=== PATIENT | male | born 1970 | race Caucasian/White ===

== ENCOUNTER 2023-06-20 08:50 | Outpatient (OUT) | payer BC, SELFPAY ==
[2023-06-20 09:22] LABS: Basophils Percent Auto 0.7 % (0.2-2.0); Eosinophils Percent Auto 0.7 % (0.9-7.0); Hematocrit 47.3 % (42.0-54.0); Hemoglobin 16.2 g/dL (14.0-18.0); Immature Granulocytes Abs Auto 0.02 10^3/uL (0.00-0.03); Immature Granulocytes Pct Auto 0.5 % (0.0-0.5); Lymphocytes Absolute Auto 1.4 10^3/uL (1.2-3.8); Lymphocytes Percent Auto 32.3 % (20.5-60.0); Mean Corpuscular HGB Conc 34.2 g/dL (29.9-35.2); Mean Corpuscular Hemoglobin 31.2 pg (25.9-34.0); Monocytes Absolute Auto 0.4 10^3/uL (0.3-0.8); Monocytes Percent Auto 9.4 % (1.7-12.0); Neutrophils Absolute Auto 2.5 10^3/uL (1.4-6.5); Neutrophils Percent Auto 56.4 % (43.0-75.0); Platelet Count 194 10^3/uL (150-450); Red Cell Distribution Width 11.6 % (11.0-15.0); White Blood Count 4.4 10^3/uL (4.0-11.0)
[2023-06-20 10:02] LABS: Alanine Aminotransferase 33 U/L (16-63); Albumin Globulin Ratio 1.2; Alkaline Phosphatase 63 U/L (46-116); Anion Gap 8.2; Aspartate Amino Transferase 17 U/L (15-37); BUN Creatinine Ratio 16.3; Bilirubin Total 0.5 mg/dL (0.2-1.0); Calcium 8.8 mg/dL (8.5-10.1); Chloride 104 mmol/L (98-107); Chol HDL Ratio 3.6; Cholesterol 145 mg/dL (<=200); Estimated GFR (African America >60 (>=60); Estimated GFR (Non-African Ame >60 (>=60); Globulin 3.3 g/dL; Glucose 112 mg/dL (74-106); HDL Cholesterol 40 mg/dL (40-60); LDL Cholesterol Calculated 88.8 mg/dL; Potassium 4.2 mmol/L (3.5-5.1); Sodium 140 mmol/L (136-145); Total Protein 7.3 g/dL (6.4-8.2); Triglycerides 81 mg/dL (<=150); VLDL CHOLESTEROL 16.2 mg/dL
[2023-06-20 12:45] LABS: Estimated Average Glucose 103 mg/dL; Glycohemoglobin A1C 5.2 % (4.5-6.2)
== END 2023-06-20 08:51 | disposition home or self-care (01) ==
LOC: LAB 08:54
PROVIDERS: PCP Internal Medicine; Visit Provider Internal Medicine
DX: Z00.00 Encounter for general adult medical examination without abnormal findings (principal); Z13.1 Encounter for screening for diabetes mellitus; Z13.220 Encounter for screening for lipoid disorders
CPT/HCPCS: 36415; 80053; 80061; 83036; 85025

== ENCOUNTER 2023-12-23 14:06 | Outpatient (OUT) | payer BC, SELFPAY ==
[2023-12-23 12:08] LABS: Alanine Aminotransferase 27 U/L (16-63); Albumin Globulin Ratio 1.1; Alkaline Phosphatase 72 U/L (46-116); Anion Gap 10.6; Aspartate Amino Transferase 27 U/L (15-37); BUN Creatinine Ratio 19.5; Bilirubin Total 0.5 mg/dL (0.2-1.0); Calcium 9.5 mg/dL (8.5-10.1); Carbon Dioxide 31.8 mmol/L (21.0-32.0); Chloride 102 mmol/L (98-107); Estimated GFR (African America >60 (>=60); Estimated GFR (Non-African Ame >60 (>=60); Globulin 3.6 g/dL; Glucose 100 mg/dL (74-106); Potassium 4.4 mmol/L (3.5-5.1); Sodium 140 mmol/L (136-145); Total Protein 7.6 g/dL (6.4-8.2)
--- OUTSIDE RECORDS SUMMARY | 2023-12-26 14:19 | XMS_ITS | CCD ---
Author Organization [facility] Care Team Providers Care Caustic Liquor Maker Name Role Phone SHAIKH ATKINSON Attending Unavailable Encounters Encounter Date Encounter Type Care Provider Facility Start: 11-17-2023 End: 11-17-2023 ambulatory SHAIKH DEMETRIO Not Available Payers Date Payer Category Payer Unknown [id number] 1970 Unknown [id number] Summary Purpose Family History No Family History Records Found Advance Directives No Advanced Directives Records Found Additional Source Comments (unrecognized sect ion and content) No Status Records Found INFORMATION SOURCE (unrecogn ized section and content) DATE CREATED AUTHOR 11/20/2023 [facility] d[facility] Specialists EPIC FOR RECORDS PERTAINING TO PATIENTS WHO ARE OR HAVE BEEN ENROLLED IN A CHEMICAL DEPENDENCY/SUBSTANCEABUSE PROGRAM, SOME INFORMATION MAY BE OMITTED. This clinical summary was aggregated from multiple sources. Caution should be exercised in using it in the provision of clinical care. This summary normalizes information from multiple sources, and as a consequence, information in this document may materially change the coding, format and clinical context of patient data. In addition, data may be omitted in some cases. CLINICAL DECISIONS SHOULD BE BASED ON THE PRIMARY CLINICAL RECORDS. [employer] provides no warranty or guarantee of the accuracy or completeness of information in this document.
== END 2023-12-23 14:07 | disposition home or self-care (01) ==
LOC: LAB 12-26 14:06
PROVIDERS: PCP Internal Medicine; Visit Provider Internal Medicine
DX: K21.00 Gastro-esophageal reflux disease with esophagitis, without bleeding (principal); R10.13 Epigastric pain
CPT/HCPCS: 36415; 80053

== ENCOUNTER 2024-07-20 10:24 | Outpatient (OUT) | payer BC, SELFPAY ==
--- OUTSIDE RECORDS SUMMARY | 2024-07-18 11:29 | XMS_ITS | CCD ---
Author Organization [facility] Care Team Providers Care Energy Trader Name Role Phone Luan Huitron MD Primary Care Provider [phone] Mayela RECORDS ADMINISTRATOR, Claire Cornelius [phone] SHAIKH ATKINSON Attending Unavailable CLAIRE ZAVALA Attending Unavailabl e OTTO CASSIDY Attending Unavailable OTTO CASSIDY Referring Unavailable OTTO CASSIDY Attending Unavailable Medications Current Medications Medication Drug Class(es) Dates Sig (Normalized) Sig (Original) omeprazole 20 mg delayed release oral tablet (3 sources) Proton Pump Inhibitor take 1 tablet by mouth before mealtime omeprazole OTC (PriLOSEC OTC) 20 MG EC tablet Take 20 mg by mouth in the morning. Take before meals. Do not crush, chew, or split.. Active Problems Active Problems Problem Classification Problem Date Documented Date Episodic/Chronic Disorders usually diagnosed in infancy, childhood, or adolescence (3 sources) Attention deficit hyperactivity disorder, predominantly inattentive type; Translations: [Other specified behavioral and emotional disorders with onset usually occurring in childhood and adolescence] Onset: 11-17-2023 11-17-2023 Chronic Esophageal disorders (3 sources) Gastro-esophageal reflux disease with esophagitis; Translations: [Gastroesophageal reflux disease with esophagitis without hemorrhage] Onset: 11-17-2023 11-17-2023 Chronic Osteoarthritis (2 sources) Osteoarthritis of joint of left shoulder region; Translations: [Primary osteoarthritis, left shoulder] 06-19-2024 Chronic Other non-traumatic joint disorders (3 sources) Chronic pain of left upper limb; Translations: [Pain in left shoulder] Onset: 05-22-2024 05-22-2024 Episodic Other non-traumatic joint disorders (2 sources) Pain in left shoulder; Translations: [Pain in joint, shoulder region] 06-19-2024 Episodic Residual codes; unclassified (3 sources) Sleep apnea; Translations: [Sleep apnea, unspecified] Onset: 11-17-2023 11-17-2023 Chronic Spondylosis; intervertebral disc disorders; other back problems (3 sources) Low back pain; Translations: [Lumbar back pain] Onset: 05-22-2024 05-22-2024 Episodic Past or Other Problems Problem Classification Problem Date Documented Da te Episodic/Chronic Abdominal pain (3 sources) Epigastric pain; Translations: [Epigastric pain] Onset: 11-17-2023 11-17-2023 Episodic Encounters Encounter Date Encounter Type Care Provider Facility Start: 06-19-2024 End: 06-19-2024 [employer] Otto Cassidy NP Work Phone: [facility] Start: 06-19-2024 End: [facility] NP Work Phone: [facility] Start: 06-19-2024 End: 06-19-2024 Office outpatient visit 10 minutes Otto Cassidy NP Work Phone: [facility] Comment on above: Primary osteoarthrit is of left shoulder (Primary Dx); Left shoulder pain, unspecified chronicity Start: 06-19-2024 End: 06-19-2024 ambulatory OTTO CASSIDY Not Available Start: 05-29-2024 End: 05-29-2024 ambulatory OTTO CASSIDY Not Available Start: 05-22-2024 End: 05-22-2024 ambulatory CLAIRE ZAVALA Not Available Start: 05-22-2024 Patient encounter status Otto Cassidy NP Work Phone: [facility] Start: 11-17-2023 End: 11-17-2023 ambulatory SHAIKH DEVENDRAEARNEST Not Available Plan of Treatment Date Care Activity Detail Author Start: 09-06-2026 Screening for malign ant neoplasm of colon [facility] Start: 11-20-2024 End: 11-20-2024 Patient encounter procedure 11/20/2024 3:30 PM EST Office Visit [facility] [address] [place] [phone] Claire Zavala NP [address] [facility] [address] [place] [address] [facility] Start: 06-19-2024 End: 06-19-2024 Patient encounter procedure 06/19/2024 9:45 AM EDT Office Visit [facility] [address] [place] [phone] Otto Cassidy, RIA[address] [place], [place] [id number] Arrived [facility] Comment on above: Arrived Start: 05-20-2024 Influenza vaccination Influenza Vacc ine (#1) [facility] Start: 1970 Screening for malign ant neoplasm of colon [facility] Immunizations Immunization Date Immunization Notes Care Provider Fa cility 09-24-2022 zoster vaccine recombinant Otto Cassidy NP Work Phone: [facility] 05-20-2022 zoster vaccine recombinant Otto Cassidy NP Work Phone: [facility] 08-17-2018 influenza, injectabl e, quadrivalent, preservative free Otto Cassidy NP Work Phone: [facility] 08-17-2018 influenza virus vacc ine, unspecified formulation Otto Cassidy NP Work Phone: [facility] Payers Date Payer Category Payer Unknown BCBS BCBS xxxxxx [id number] 2022-Present [phone] [address] [place] [address] [id number] 2022 Unknown [id number] 1970 Unknown [id number] 1970 Unknown [id number] 1972 Unknown [id number] 1970 Unknown [id number] 1970 Unknown [id number] Social History Date Type Detail Facility Start: [facility]17-2023 [facility] Start: 11-17-2023 Tobacco use and exposure Smokeless tobacco non-user [facility] Start: 05-29-2024 End: 06-19-2024 Alcoholic beverage intake Current drinker of alcohol (finding) [facility] Start: 05-22-2024 End: 05-29-2024 History of Social function [facility] Start: 05-22-2024 End: 05-29-2024 Tobacco use panel [facility] Start: 11-17-2023 Alcohol Comment caffeine: 2-3 cups per day coffee [facility] Start: 1970 Sex assigned at Not on file [facility] NEGATED: Highlighted rowStart: NINF History of tobacco use Passive smoker [facility] History of Present illness Narrative 06-19-2024 Otto Cassidy NP - 06/19/2024 9:45 AM EDT Note Date & Type Note Facility 06-19-2024 History of Presen t illness Narrative Images from the original note were not included. NAME: Robbi Campoverde : 1970 HISTORY OF PRESENT ILLNESS: Robbi Campoverde is an 54 y.o. @ male. (EST PT) LT SHOULDER PAIN FOR YRS, STEADILY GETTING WORSE. NKI, THINKS WEAR AND TEAR. S/P DEPO INJ 05/29 (3 WKS) XRAY EPIC 05/29/24 DEPO INJECTION 05/29/24 NOTES SHOULDER IS BETTER THAN IT WAS. SOME DAYS ARE MORE PAINFUL THAN OTHERS. DEPENDS ON THE DAY AND WHAT HE IS DOING. ROM HAS IMPROVED. NO PAIN MEDS. DENIES N/T, SWELLING. SOMETIMES WAKES AT HS. ADMITS POPPING/GRINDING. RT HANDED. PAST MEDICAL HISTORY: Past Medical History: Diagnosis Date Abdominal pain ADD (attention deficit disorder) Contact dermatitis Heart palpitations PAST SURGICAL HISTORY: Past Surgical History: Procedure Laterality Date COLONOSCOPY 2011 EGD 2011 TESTICLE SURGERY 1989 testicular torsion ALLERGIES: No Known Allergies HOME MEDICATIONS: Current Outpatient Medications Medication Instructions omeprazole OTC (PRILOSEC OTC) 20 mg, Oral, Daily before breakfast, Do not crush, chew, or split. Vitals: There is no height or weight on file to calculate BMI. PHYSICAL EXAM: Left Shoulder Exam Tenderness Left shoulder tenderness location: anterior lateral shoulder pain, improved since injection. Range of Motion Active abduction: 140 (pain passing 90 degrees) Forward flexion: 140 Muscle Strength Abduction: 5/5 Other Sensation: normal Pulse: present Comments: Pain deep in joint IMAGING: Procedures ASSESSMENT: ICD-10-CM 1. Primary osteoarthritis of left shoulder M19.012 2. Left shoulder pain, unspecified chronicity M25.512 PLAN: Patient states that he had decent relief with injection but still has some days that are more sore than others. I educated patient that we can repeat injection every 3-4 months as needed. Patient will call with any worsening symptoms. Questions answered in laymen terms at the bedside. The diagnosis, home exercise plan and any ongoing restrictions/ recommendations reviewed. If unable to be reached in office, I recommend evaluation at nearest Emergency Room if any symptoms worsened or new symptoms develop for requiring urgent evaluation. Otto Cassidy APRN-BOAT ASSEMBLER documented in this encounter [facility] Evaluation note Note Date & Type Note Facility Evaluation note Diagnosis Primary osteoarthritis of left shoulder- Primary Left shoulder pain, unspecified chronicity documented in this encounter [facility] Summary Purpose Family History No Family History Records Found Advance Directives No Advanced Directives Records Found Additional Source Comments Care Teams (unrecognized sec tion and content) Energy Trader Relationship Specialty Start Date End Date Luan Huitron MD [address] [place] [address] PCP - General Family Medicine 04/23/24 Claire Zavala NP [address] [place] [address] Nurse Practitioner Family Medicine 04/23/24 Energy Trader Relationship Specialty Start Date End Date Luan Huitron MD [address] [place] [address] PCP - General Family Medicine 04/23/24 Claire Zavala NP [address] [place] [phone] Nurse Practitioner Family Medicine 04/23/24 (unrecognized sect ion and content) No Status Records Found INFORMATION SOURCE (unrecogn ized section and content) DATE CREATED AUTHOR 06/20/2024 [facility] dical Specialists EPIC Reason for Visit (unrecogniz ed section and content) Reason Comments Follow-up FOR RECORDS PERTAINING TO PATIENTS WHO ARE [...] BE BASED ON THE PRIMARY CLINICAL RECORDS. [email or web address] provides no warranty or guarantee of the accuracy or completeness of information in this document.
--- OUTSIDE RECORDS SUMMARY | 2024-07-20 10:36 | XMS_ITS | CCD ---
Author Organization [facility] Care Team Providers Care Estimator Name Role Phone Luan Huitron MD Primary Care Provider [phone] Mayela SHANK PAPERER, Claire Cornelius SHAIKH ATKINSON Attending Unavailable CLAIRE ZAVALA Attending [...] Care Provider Facility Start: 06-19-2024 End: 06-19-2024 Virtual Web Otto Cassidy NP Work Phone: [facility] Start: 06-19-2024 End: 06-19-[address] [facility] NP Work Phone: [facility] Start: 06-19-2024 End: 06-19-2024 Office outpatient visit 10 minutes Otto Cassidy NP Work Phone: [facility] Comment on above: Primary osteoarthrit is of left shoulder (Primary Dx); Left shoulder pain, unspecified chronicity Start: 06-19-2024 End: 06-19-2024 ambulatory OTTO CASSIDY Not Available Start: 05-29-2024 End: 05-29-2024 ambulatory OTTO CASSIDY Not Available Start: 05-22-2024 End: 05-22-2024 ambulatory CLAIRE ZAVALA Not Available Start: 05-22-2024 Patient encounter status Otto Cassidy NP Work Phone: [facility] Start: 11-17-2023 End: 11-17-2023 ambulatory SHAIKH DEVENDRAEARNEST Not Available Plan of Treatment Date Care Activity Detail Author Start: 09-06-2026 Screening for malign ant neoplasm of colon [facility] Start: 11-20-2024 End: 11-20-2024 Patient encounter procedure 11/20/2024 3:30 PM EST Office Visit [facility] [address] [place] [phone] Claire Zavala NP [address] [facility] [place] [address] [facility] Start: 06-19-2024 End: 06-19-2024 Patient encounter procedure 06/19/2024 9:45 AM EDT Office Visit [facility] [address] [place] [phone] Otto Cassidy, RIAZ [address] [place], [place] [phone] Arrived [facility] Comment on above: Arrived Start: 05-20-2024 Influenza vaccination Influenza Vacc ine (#1) [facility] Start: 1970 Screening for malign ant neoplasm of colon [facility] Immunizations Immunization Date Immunization Notes Care Provider Fa cility 09-24-2022 zoster vaccine recombinant Otto Cassidy NP Work Phone: [facility] 05-20-2022 zoster vaccine recombinant Otto Cassidy NP Work Phone: [facility] 08-17-2018 influenza, injectabl e, quadrivalent, preservative free Otto Cassidy NP Work Phone: [facility] 08-17-2018 influenza virus vacc ine, unspecified formulation Otto Cassidy NP Work Phone: [facility] Healthcare Payers Date Payer Category Payer Unknown BCBS BCBS xxxxxx [id number] 2022-Present [phone] [address] [place] [address] [id number] 2022 Unknown [id number] 1970 Unknown [id number] 1970 Unknown [id number] 1970 Unknown [id number] 1970 Unknown [id number] 1970 Unknown [id number] Social History Date Type Detail Facility Start: 11-17-2023 [facility] Start: 11-17-2023 [...] develop for requiring urgent evaluation. Otto Cassidy APRN-VICE PRESIDENT PLANNING documented in this encounter [facility] Evaluation note Note Date & Type Note Facility Evaluation note Diagnosis Primary osteoarthritis of left shoulder- Primary Left shoulder pain, unspecified chronicity documented in this encounter [facility] Summary Purpose Family History No Family History Records Found Advance Directives No Advanced Directives Records Found Additional Source Comments Care Teams (unrecognized sec tion and content) Estimator Relationship Specialty Start Date End Date Luan Huitron MD [address] [place] [address] PCP - General Family Medicine 04/23/24 Claire Zavala NP [address] [place] [address] Nurse Practitioner Family Medicine 04/23/24 Estimator Relationship Specialty Start Date End Date Luan Huitron MD [address] [place] [address] PCP - General Family Medicine 04/23/24 Claire Zavala NP [address] [place] [phone] Nurse Practitioner Family Medicine 04/23/24 (unrecognized sect ion and content) No Status Records Found INFORMATION SOURCE (unrecogn ized section and content) DATE CREATED AUTHOR 06/20/2024 [facility] dical Specialists EPIC Reason for Visit (unrecogniz [...] BE BASED ON THE PRIMARY CLINICAL RECORDS. [employer] provides no warranty or guarantee of the accuracy or completeness of information in this document.
[2024-07-20 10:38] LABS: Basophils Percent Auto 0.6 % (0.2-2.0); Eosinophils Absolute Auto 0.1 10^3/uL (0.0-0.7); Hematocrit 48.4 % (42.0-54.0); Hemoglobin 16.5 g/dL (14.0-18.0); Immature Granulocytes Abs Auto 0.01 10^3/uL (0.00-0.03); Immature Granulocytes Pct Auto 0.2 % (0.0-0.5); Lymphocytes Absolute Auto 2.3 10^3/uL (1.2-3.8); Lymphocytes Percent Auto 43.5 % (20.5-60.0); Mean Corpuscular HGB Conc 34.1 g/dL (29.9-35.2); Mean Corpuscular Hemoglobin 30.8 pg (25.9-34.0); Mean Corpuscular Volume 90.5 fL (80.0-94.0); Mean Platelet Volume 8.9 fL (9.5-13.5); Monocytes Absolute Auto 0.5 10^3/uL (0.3-0.8); Monocytes Percent Auto 10.1 % (1.7-12.0); Neutrophils Absolute Auto 2.3 10^3/uL (1.4-6.5); Neutrophils Percent Auto 44.6 % (43.0-75.0); Platelet Count 199 10^3/uL (150-450); Red Blood Count 5.35 10^6/uL (4.70-6.10); Red Cell Distribution Width 11.8 % (11.0-15.0); White Blood Count 5.2 10^3/uL (4.0-11.0)
--- NOTE | 2024-07-20 10:38 | XR_ITS ---
[facility] [place] [id number] Patient Name: SHERON ADAMS MRN: [id number] date: 1970 Sex: M Assigned Patient Location: LAB Current Patient Location: Accession/Order Number: [id number] Exam Date: 07/20/2024 10:45 Report Date: 07/22/2024 06:53 At the request of: LESLIE ZAVALA Procedure: XR lumbar spine 6V w bending EXAMINATION: XR lumbar spine 6V w bending HISTORY: Lumbar Back Pain M54.50 COMPARISON: No relevant comparison available. FINDINGS: BONES: Minimal grade 1 retrolisthesis of L1 on 2, L2 on 3, L4 on 5; no appreciable change in alignment during flexion and extension. Mild anterior wedging of L1 without increased endplate sclerosis or irregular density. Mild-moderate degenerative facet arthropathy L4-L5, L5-S1 resulting in bone encroachment on the neural foramen.. DISC SPACES: Marked narrowing L5-S1. Moderate narrowing L1-L2. PARASPINOUS: Negative. No paraspinous abnormality is seen. OTHER: Negative. XR/XR lumbar spine 6V w bending IMPRESSION: 1. Multilevel degenerative changes; marked at L5-S1. Electronically authenticated by: RUTH CHOE Date: 07/22/2024 06:53
[2024-07-20 10:57] LABS: Estimated Average Glucose 103 mg/dL; Glycohemoglobin A1C 5.2 % (4.5-6.2)
[2024-07-20 11:10] LABS: Alanine Aminotransferase 27 U/L (16-63); Albumin Globulin Ratio 1.1; Alkaline Phosphatase 71 U/L (46-116); Anion Gap 12.6; Aspartate Amino Transferase 17 U/L (15-37); BUN Creatinine Ratio 15.9; Bilirubin Total 0.8 mg/dL (0.2-1.0); Calcium 9.2 mg/dL (8.5-10.1); Carbon Dioxide 29.9 mmol/L (21.0-32.0); Chloride 103 mmol/L (98-107); Chol HDL Ratio 3.2; Cholesterol 149 mg/dL (<=200); Estimated GFR (African America >60 (>=60 mL/min/1.73m^2); Estimated GFR (Non-African Ame >60 (>=60 mL/min/1.73m^2); Globulin 3.6 g/dL; Glucose 109 mg/dL (74-106); HDL Cholesterol 46 mg/dL (40-60); LDL Cholesterol Calculated 90.4 mg/dL; Potassium 4.5 mmol/L (3.5-5.1); Sodium 141 mmol/L (136-145); TSH W/ REFLEX FT4 1.587 uIU/mL (0.358-3.740); Total Protein 7.6 g/dL (6.4-8.2); Triglycerides 63 mg/dL (<=150); VLDL CHOLESTEROL 12.6 mg/dL
== END 2024-07-20 10:25 | disposition home or self-care (01) ==
LOC: LAB 10:24
DX: Z00.00 Encounter for general adult medical examination without abnormal findings (principal); M54.50 Low back pain, unspecified
CPT/HCPCS: 36415; 72114; 80053; 80061; 83036; 84443; 85025